=== PATIENT | female | born 1965 | race Caucasian/White ===

== ENCOUNTER 2021-07-27 07:09 | Emergency (ER) | payer MEDICARE, MEDICAID ==
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
== END 2021-07-27 11:35 | disposition home or self-care (01) ==
LOC: JD.ED 07:21
DX: F15.929 Other stimulant use, unspecified with intoxication, unspecified (principal); N28.9 Disorder of kidney and ureter, unspecified; E86.0 Dehydration; E83.51 Hypocalcemia; Z72.0 Tobacco use
CPT/HCPCS: 36415; 80053; 80306; 80307; 83735; 85025; 99284

== ENCOUNTER 2021-07-31 07:23 | Emergency (ER) | payer MEDICARE, MEDICAID ==
[2021-07-31] MEDS ORDERED: Ondansetron 4 MG/2 ML SDV IVPUSH ONE (08:01)
[2021-07-31] MEDS ORDERED: Sodium Chloride 0.9% 1,000 ML IV STA (08:01)
[2021-07-31] MEDS ORDERED: Sodium Chloride 0.9% 10 ML Syringe FLUSH PRN (08:01)
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
[2021-07-31 08:48] LABS: CORONAVIRUS COVID-19 NAA POSITIVE (NEGATIVE)
--- NOTE | 2021-07-31 08:55 | CR ---
Chest: Portable view of the chest was obtained. Comparison: No prior chest imaging is available. Deformity of the left shoulder is seen which appears chronic. Heart size and mediastinum are normal. Lungs are clear with no acute parenchymal change. Impression: 1. Deformity of the left shoulder which appears chronic. 2. Nothing acute is seen on portable chest x-ray. Diagnostic code #2
== END 2021-07-31 11:50 | disposition home or self-care (01) ==
LOC: JD.ED 07:23
DX: N28.9 Disorder of kidney and ureter, unspecified (principal); U07.1 COVID-19; E87.6 Hypokalemia; E83.51 Hypocalcemia; E86.0 Dehydration; Z72.0 Tobacco use; Z79.899 Other long term (current) drug therapy
CPT/HCPCS: 0240U; 36415; 71045; 80053; 84484; 85025; 93005; 96374; 99285; J2405; J7030; 93010; 99284

== ENCOUNTER 2021-08-01 12:28 | Emergency (ER) | payer MEDICARE, MEDICAID ==
[2021-08-01] MEDS ORDERED: Etomidate 2 MG/ML 20 ML SDV IVPUSH ONE (12:34)
[2021-08-01] MEDS ORDERED: Rocuronium 50 MG/5 ML Vial IVPUSH ONE (12:35)
[2021-08-01] MEDS ORDERED: Sodium Bicarbonate 8.4% 50 MEQ/50 ML Syringe ONE ×2 (13:00)
[2021-08-01] MEDS ORDERED: EPINEPHrine 1:10,000 1 MG/10 ML Syringe ONE (13:00)
[2021-08-01] MEDS ORDERED: Amiodarone 150 MG/3 ML SDV ONE (13:00)
--- NOTE | 2021-08-01 13:06 | CR ---
Chest: Frontal view of the chest was obtained. Comparison: Prior chest x-ray of 07/31/21. Endotracheal tube is seen. Tip lies below the level of the clavicles and approximately 3.2 cm from the raffi. Nasogastric tube is seen. Side port lies above the gastroesophageal junction with tip being within the stomach. This should be advanced by about 6 cm. Heart size and mediastinum are normal. Lungs show very slight atelectasis within the left lung base. Lungs otherwise are clear. Bony structures are unchanged from prior study. Impression: 1. Satisfactory position of endotracheal tube. 2. Nasogastric tube should be advanced by about 6 cm. 3. Minimal atelectasis within the left lung base. 4. Other portions of the study are stable from previous exam. Diagnostic code #3
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
== END 2021-08-01 15:29 | disposition expired ==
LOC: JD.ED 12:28
DX: U07.1 COVID-19 (principal); E86.0 Dehydration; E87.6 Hypokalemia; F15.90 Other stimulant use, unspecified, uncomplicated; E83.51 Hypocalcemia; N28.9 Disorder of kidney and ureter, unspecified; I46.9 Cardiac arrest, cause unspecified
CPT/HCPCS: 31500; 71045; 96374; 99285; J0171; J0282; J3490; 92950